=== PATIENT | male | born 1955 | race Caucasian/White ===

== ENCOUNTER 2017-04-13 15:31 | Observation (INO) | payer OTHER ==
[~2017-04-13] VITALS: Ht 185.4 cm; Wt 105.0 kg
[2017-04-13] MEDS ORDERED: ASPIRIN 81 MG TABLET CHEW ONE (15:55)
[2017-04-13 15:59] LABS: WHITE BLOOD COUNT 6.4 x10^3/uL (3.4-10)
[2017-04-13] MEDS ORDERED: ASPIRIN 81 MG TABLET CHEW PO ONE (16:00)
[2017-04-13] MEDS ORDERED: SODIUM CHLORIDE FLUSH 10ML SYR IVF ONE (16:00)
[2017-04-13] MEDS ORDERED: NITROGLYCERIN SINGLE TAB 0.4 MG SL PRN (16:00)
[2017-04-13 16:07] LABS: BLOOD UREA NITROGEN 19 mg/dL (7-18)
[2017-04-13 16:13] LABS: IS PT STATUS REG ER OR PRE ER? YES
[2017-04-13] MEDS ORDERED: SODIUM CHLORIDE FLUSH 10ML SYR IVF PRN (17:00)
[2017-04-13] MEDS ORDERED: ENALAPRILAT 1.25 MG/ML, 2ML IVPush PRN (17:30)
[2017-04-13] MEDS ORDERED: morphine SULFATE 10 MG/ML, 1ML IVPush PRN (17:30)
[2017-04-13] MEDS ORDERED: ONDANSETRON ODT 4 MG PO PRN (17:30)
[2017-04-13] MEDS ORDERED: ACETAMINOPHEN 325 MG TABLET PO PRN (17:30)
[2017-04-13] MEDS ORDERED: LABETALOL 5MG/ML, 20ML IVPush PRN (17:30)
[2017-04-13] MEDS ORDERED: ONDANSETRON 2MG/ML, 2ML IVPush PRN (17:30)
[2017-04-13 18:25] VITALS: BP 112/75
[2017-04-13 20:25] VITALS: BP 118/79
[2017-04-13] MEDS ORDERED: MAALOX/HYOSCYAMINE/LIDOCAINE 45 ML BTL PO ONE (20:30)
[2017-04-13] MEDS: HEPARIN 5,000 UNITS/ML, 1ML SQ SCH (21:00)
[2017-04-13] MEDS: SODIUM CHLORIDE 0.9% 1,000 ML IV SCH (21:00)
[2017-04-13 21:30] LABS: IS PT STATUS REG ER OR PRE ER? NO
[2017-04-14 03:00] VITALS: BP 110/65
[2017-04-14] MEDS: HEPARIN 5,000 UNITS/ML, 1ML SQ SCH ×2 (03:34→10:26)
[2017-04-14 03:35] LABS: HEMATOCRIT 48.3 % (39.2-51.8); WHITE BLOOD COUNT 5.5 x10^3/uL (3.4-10)
[2017-04-14 03:44] LABS: BLOOD UREA NITROGEN 18 mg/dL (7-18)
[2017-04-14 03:50] LABS: IS PT STATUS REG ER OR PRE ER? NO
[2017-04-14] MEDS: SODIUM CHLORIDE 0.9% 1,000 ML IV SCH (04:26)
[2017-04-14 07:14] VITALS: BP 118/73
[2017-04-14] MEDS ORDERED: REGADENOSON 0.4 MG/5 ML SYRINGE ONE (08:38)
[2017-04-14 14:33] VITALS: BP 109/67
== END 2017-04-14 15:09 | disposition home or self-care (01) ==
LOC: ED 16:34 → EDIP 16:35 → INTOOBSV 16:35 → ED 16:37 → 5SO 18:04
PROVIDERS: ADMIT Internal Medicine; ATTEND Internal Medicine
DX: R07.89 Other chest pain (principal); M54.5 Low back pain
CPT/HCPCS: 36415; 71010; 78452; 80048; 80061; 82040; 83735; 84100; 84439; 84443; 84484; 85025; 85379; 93005; 93017; 96360; 96361; 99285; A9502; C9898; G0378; J2785; J7030

== ENCOUNTER 2017-07-28 07:05 | Day surgery (SDC) | payer OTHER ==
[2017-07-25 09:50] VITALS: BP 125/86
[2017-07-25 10:03] LABS: BASOPHILS # (AUTO) 0.03 x10^3/uL (0-0.1); BASOPHILS % (AUTO) 1 % (0-1); EOSINOPHILS # (AUTO) 0.11 x10^3/uL (0-0.4); EOSINOPHILS % (AUTO) 2 % (1-7); LYMPHOCYTES # (AUTO) 1.94 x10^3/uL (1-3.4); LYMPHOCYTES % (AUTO) 31 % (22-44); MD NO; MEAN CORPUSCULAR HEMOGLOBIN 31.2 pg (27.5-34.5); MEAN CORPUSCULAR HGB CONC 33.7 g/dL (33.2-36.2); MEAN CORPUSCULAR VOLUME 92.6 fL (81-97); MEAN PLATELET VOLUME 10.4 fL (7.4-10.4); MONOCYTES # (AUTO) 0.51 x10^3/uL (0.2-0.8); MONOCYTES % (AUTO) 8 % (2-9); NEUTROPHILS % (AUTO) 58 % (42-75); PLATELET COUNT 150 x10^3/uL (130-400); RED BLOOD COUNT 5.42 x10^6/uL (4.38-5.82); RED CELL DISTRIBUTION WIDTH 13.1 % (9.4-14.8)
[2017-07-25 10:16] LABS: ALANINE AMINOTRANSFERASE 35 U/L (12-78); ALBUMIN 3.7 g/dL (3.4-5.0); ANION GAP 9 mmol/L (5-15); CALCIUM 8.9 mg/dL (8.5-10.1); CHLORIDE 108 mmol/L (98-107)
[2017-07-25 10:56] LABS: ALKALINE PHOSPHATASE 52 U/L (45-117); BILIRUBIN,TOTAL 0.7 mg/dL (0.2-1.0); CREATININE 0.87 mg/dL (0.7-1.3); TOTAL PROTEIN 7.3 g/dL (6.4-8.2)
[~2017-07-28] VITALS: Ht 185.4 cm; Wt 111.8 kg
[~2017-07-28 07:05] MED LIST: ASPI-496 PO
[2017-07-28] MEDS ORDERED: SODIUM CHLORIDE 0.9% 1,000 ML IV SCH (07:22)
[2017-07-28] MEDS ORDERED: ATOR10TA9 PO (08:41)
[2017-07-28] MEDS ORDERED: FENTANYL PF 100 MCG/2ML ONE (08:56)
[2017-07-28] MEDS ORDERED: MIDAZOLAM 1 MG/ML, 2ML ONE ×2 (08:56→09:16)
[2017-07-28] MEDS ORDERED: LIDOCAINE 2%, 20ML ONE (08:57)
== END 2017-07-28 13:03 | disposition home or self-care (01) ==
LOC: CACL 07:05
PROVIDERS: ATTEND Internal Medicine Cardiovascular Disease
DX: R07.9 Chest pain, unspecified (principal); I36.1 Nonrheumatic tricuspid (valve) insufficiency; I34.0 Nonrheumatic mitral (valve) insufficiency; Z88.6 Allergy status to analgesic agent; Z72.89 Other problems related to lifestyle; Z80.1 Family history of malignant neoplasm of trachea, bronchus and lung; Z98.890 Other specified postprocedural states; G44.209 Tension-type headache, unspecified, not intractable; E78.2 Mixed hyperlipidemia
CPT/HCPCS: 36415; 80053; 85025; 93306; 93458; 99156; C1760; C1894; J2250; J3010; J3490; Q9967

== ENCOUNTER 2019-11-08 07:33 | Outpatient (CLI) | payer OTHER ==
[~2019-11-08 07:33] MED LIST changes: +ATOR10TA9 PO; +REGADENOSON 0.4 MG/5 ML SYRINGE ONE
== END 2019-11-08 23:59 | disposition home or self-care (01) ==
LOC: CFH 07:33
PROVIDERS: ATTEND Internal Medicine Cardiovascular Disease
DX: R07.9 Chest pain, unspecified (principal); R06.02 Shortness of breath
CPT/HCPCS: 78452; 93017; A9502; J2785

== ENCOUNTER → 2019-12-13 | Outpatient (CLI) | payer OTHER ==
[~2019-12-13] MED LIST changes: -REGADENOSON 0.4 MG/5 ML SYRINGE ONE
== END | disposition home or self-care (01) ==
LOC: CFH 12:43
PROVIDERS: ATTEND Nurse Practitioner Family
DX: R91.1 Solitary pulmonary nodule (principal); I25.10 Atherosclerotic heart disease of native coronary artery without angina pectoris; M50.30 Other cervical disc degeneration, unspecified cervical region; M51.34 Other intervertebral disc degeneration, thoracic region
CPT/HCPCS: 71250

== ENCOUNTER 2019-12-26 10:05 | Day surgery (SDC) | payer OTHER ==
[~2019-12-26] VITALS: Ht 185.4 cm; Wt 110.0 kg
[~2019-12-26 10:05] MED LIST changes: +METO25TA35 PO
[2019-12-26] MEDS ORDERED: LACTATED RINGERS 1,000 ML IV SCH (10:28)
[2019-12-26 10:30] VITALS: BP 125/84
[2019-12-26] MEDS ORDERED: CHLORHEXIDINE 15 ML UDC MM ONE (10:30)
[2019-12-26] MEDS ORDERED: PLEASE ENTER HEIGHT AND WEIGHT MC SCH (11:00)
[2019-12-26] MEDS ORDERED: FENTANYL PF 100 MCG/2ML ONE (11:45)
[2019-12-26] MEDS ORDERED: DEXAMETHASONE 4 MG/ML, 1ML ONE ×2 (11:46)
[2019-12-26] MEDS ORDERED: ONDANSETRON 2MG/ML, 2ML ONE (11:46)
[2019-12-26] MEDS ORDERED: PROPOFOL 10 MG/ML, 20ML ONE ×2 (12:24)
[2019-12-26] MEDS ORDERED: PROMETHAZINE 25 MG/ML, 1ML IVPush PRN (12:30)
[2019-12-26] MEDS ORDERED: FENTANYL PF 100 MCG/2ML IV PRN (12:30)
[2019-12-26] MEDS ORDERED: ONDANSETRON 2MG/ML, 2ML IVPush PRN (12:30)
[2019-12-26] MEDS ORDERED: ACETAMINOPHEN 325 MG TABLET PO PRN (12:30)
[2019-12-26] MEDS ORDERED: MEPERIDINE/PF 25MG/0.5ML IVPush PRN (12:30)
[2019-12-26] MEDS ORDERED: OXYcodone 5 MG/5 ML ORAL.SOL UDC PO PRN (12:30)
[2019-12-26] MEDS ORDERED: EPHEDRINE 50 MG/ML, 1ML ONE (12:32)
[2019-12-26] MEDS ORDERED: GLYCOPYRROLATE 0.2MG/1ML, 5ML ONE (12:33)
== END 2019-12-26 15:15 | disposition home or self-care (01) ==
LOC: OUT 10:05
PROVIDERS: ATTEND Internal Medicine
DX: R59.1 Generalized enlarged lymph nodes (principal); Z11.59 Encounter for screening for other viral diseases; I48.91 Unspecified atrial fibrillation; E78.5 Hyperlipidemia, unspecified; Z79.899 Other long term (current) drug therapy; Z88.5 Allergy status to narcotic agent; Z80.1 Family history of malignant neoplasm of trachea, bronchus and lung; Z83.6 Family history of other diseases of the respiratory system
CPT/HCPCS: 31652; 71045; 88172; 88173; 88177; 88305; 93005; J1100; J2405; J2704; J3010; J7120; U0001; 31629

== ENCOUNTER → 2020-01-15 | Outpatient (CLI) | payer OTHER | END | disposition home or self-care (01) | LOC: PETCFH 10:30 | PROVIDERS: ATTEND Internal Medicine | DX: R91.1 Solitary pulmonary nodule (principal) | CPT/HCPCS: 78815; A9552 ==

== ENCOUNTER 2020-01-24 08:52 | Outpatient (CLI) | payer OTHER | END 2020-01-24 23:59 | disposition home or self-care (01) | LOC: CVU 08:52 | PROVIDERS: ATTEND Internal Medicine Cardiovascular Disease | DX: R07.9 Chest pain, unspecified (principal); I48.91 Unspecified atrial fibrillation | CPT/HCPCS: 93306 ==

== ENCOUNTER 2020-02-01 11:32 | Day surgery (SDC) | payer OTHER ==
[~2020-02-01] VITALS: Ht 185.4 cm; Wt 110.1 kg
[2020-02-01] MEDS ORDERED: SODIUM CHLORIDE 0.9% 1,000 ML IV SCH (12:22)
[2020-02-01 12:41] VITALS: BP 125/84
[2020-02-01] MEDS ORDERED: FENTANYL PF 100 MCG/2ML ONE ×2 (13:19)
[2020-02-01] MEDS ORDERED: MIDAZOLAM 1 MG/ML, 5ML ONE (13:20)
[2020-02-01] MEDS ORDERED: FLUMAZENIL 0.1 MG/1 ML, 5ML ONE (13:20)
[2020-02-01] MEDS ORDERED: NALOXONE 1 MG/ML, 2ML ONE (13:20)
== END 2020-02-01 15:35 | disposition home or self-care (01) ==
LOC: OUT 11:32
PROVIDERS: ATTEND Thoracic Surgery (Cardiothoracic Vascular Surgery)
DX: D38.4 Neoplasm of uncertain behavior of thymus (principal); D38.3 Neoplasm of uncertain behavior of mediastinum; R22.1 Localized swelling, mass and lump, neck; I48.91 Unspecified atrial fibrillation; G47.30 Sleep apnea, unspecified; Z79.899 Other long term (current) drug therapy; Z72.89 Other problems related to lifestyle; Z88.5 Allergy status to narcotic agent; F17.210 Nicotine dependence, cigarettes, uncomplicated; Z82.49 Family history of ischemic heart disease and other diseases of the circulatory system; Z83.3 Family history of diabetes mellitus
CPT/HCPCS: 20206; 77012; 88305; 88341; 88342; 99156; 99157; J2250; J3010; J7030; J2310